=== PATIENT | male | born 1990 | race Caucasian/White ===

== ENCOUNTER 2018-03-06 14:26 | Inpatient (IN) | payer OTHER ==
[~2018-03-06] VITALS: Ht 182.9 cm; Wt 87.1 kg
[2018-03-06 15:03] LABS: BASOPHILS % 0.6 % (0.0-1.0); EOSINOPHILS # (AUTO) 0.1 (0.0-0.4); EOSINOPHILS % 1.5 % (0.0-6.0); HEMATOCRIT 49.2 % (38.2-49.6); HEMOGLOBIN 16.9 g/dL (14.0-18.0); LYMPHOCYTES # (AUTO) 1.2 (1.0-3.2); LYMPHOCYTES % 17.3 % (18.0-39.1); MEAN CORPUSCULAR HEMOGLOBIN 30.3 pg (28-32); MEAN CORPUSCULAR HGB CONC 34.3 g/dL (31-35); MEAN CORPUSCULAR VOLUME 88.2 fL (81-99); MONOCYTES # (AUTO) 0.2 (0.2-0.8); MONOCYTES % 3.2 % (4.4-11.3); NEUTROPHILS # (AUTO) 5.2 (2.1-6.9); PLATELET COUNT 211 x10e3/uL (140-360); RED BLOOD COUNT 5.58 x10e6/uL (4.3-5.7); RED CELL DISTRIBUTION WIDTH 11.8 % (11.7-14.4)
[2018-03-06 15:21] LABS: ALANINE AMINOTRANSFERASE 69 IU/L (0-55); ALBUMIN 4.2 g/dL (3.5-5.0); ALBUMIN/GLOBULIN RATIO 1.2 (0.8-2.0); ALKALINE PHOSPHATASE 73 IU/L (40-150); ANION GAP 13.4 mmol/L (8-16); BLOOD UREA NITROGEN 8 mg/dL (7-26); BUN/CREATININE RATIO 9 (6-25); CALCIUM 9.4 mg/dL (8.4-10.2); CARBON DIOXIDE 25 mmol/L (22-29); CHLORIDE 105 mmol/L (98-107); CREATININE, SERUM 0.93 mg/dL (0.72-1.25); EST GLOMERULAR FILTRATION RATE > 60 ML/MIN (60-); GLUCOSE 98 mg/dL (74-118); MAGNESIUM 2.1 MG/DL (1.3-2.1); PHOSPHORUS 1.1 MG/DL (2.3-4.7); POTASSIUM 4.4 mmol/L (3.5-5.1); SODIUM 139 mmol/L (136-145)
--- NOTE | 2018-03-06 15:26 | Diagnostic Imaging Report ---
Examination: CT BRAIN WITHOUT CONTRAST History:Seizures. Comparison studies:None Technique: Axial images were obtained from the skull base to the vertex. Coronal and sagittal images reconstructed from the axial data. Intravenous contrast: None Findings: Scalp: No abnormalities. Bones: No fractures, blastic or lytic lesions. Brain sulci: Appropriate for age. Ventricles: Normal in size and configuration. No hydrocephalus. Extra-axial space: No abnormalities. Parenchyma: No abnormal densities. No masses, hemorrhage, or acute or chronic cortical based vascular insults. Sellar/suprasellar region: No abnormalities. Craniocervical junction: Patent foramen magnum. No Chiari one malformation. Incidental findings: None. Impression: No intracranial abnormalities. Signed by: Dr. Dania Madera M.D. on 03/06/2018 3:23 PM
[2018-03-06] MEDS ORDERED: POTASSIUM PHOSPHATE 20 MM in SODIUM CHLORIDE 0.9% 250ML 250 ML IV ONE ×2 (16:30→17:15)
[2018-03-06] MEDS ORDERED: SODIUM CHLORIDE FLUSH 10 ML SYR INJ PRN (17:00)
[2018-03-06] MEDS ORDERED: ONDANSETRON HCL INJ 2 MG/ML VIAL IV PRN (17:00)
--- OUTSIDE RECORDS SUMMARY | 2018-03-06 17:20 | XMS REPORT ---
Author Author [facility] Address Unknown Phone Unavailable Care Team Providers Care Breakfast Bar Attendant Name Role Phone LAZ DAVIS Unavailable Unavailable Problems This patient has no known problems. Allergies, Adverse Reactions, Alerts This patient has no known allergies or adverse reactions. Medications This patient has no known medications. Results Test Description Test Time Test Comments Text Results Atomic Results Result Comments CT BRAIN WO [place] [address] Patient Name: DEEPIKA CURRY MR #: [id number] : 1990 Age/Sex: 27/M Req # : [id number] Adm Physician: Ordered by: LAZ DAVIS MD Report #: [id number] Location: ER Room/Bed: Procedure: 0410- 0018 CT/CT BRAIN WO Exam Date: 03/06/18 Exam Time: 1444 REPORT STATUS: Signed Examination: CT BRAIN WITHOUT CONTRAST History:Seizures. Comparison studies:None Technique: Axial images were obtained from the skull base to the vertex. Coronal and sagittal images reconstructed from the axial data. Intravenous contrast: None Findings: Scalp: No abnormalities. Bones: No fractures, blastic or lytic lesions. Brain sulci: Appropriate for age. Ventricles: Normal in size and configuration. No hydrocephalus. Extra-axial space: No abnormalities. Parenchyma: No abnormal densities. No masses, hemorrhage, or acute or chronic cortical based vascular insults. Sellar/suprasellar region: No abnormalities. Craniocervical junction: Patent foramen magnum. No Chiari one malformation. Incidental findings: None. Impression: No intracranial abnormalities. Signed by: Dr. Dania Madera M.D. on 2017 3:23 PM Dictated By: DANIA ROMERO MD [id number] Transcribed By: ALAN on 03/06/18 1523 COPY TO: LAZ DAVIS MD
[2018-03-06] MEDS ORDERED: SODIUM CHLORIDE 0.9% 1000ML 1,000 ML ONE (17:46)
[2018-03-06 19:58] LABS: AMPHETAMINES SCREEN,URINE NEGATIVE (NEGATIVE); BENZODIAZEPINES SCREEN,URINE NEGATIVE (NEGATIVE); BILIRUBIN,URINE NEGATIVE (NEGATIVE); CLARITY,URINE CLEAR (CLEAR); COLOR,URINE YELLOW (YELLOW); KETONES,URINE NEGATIVE (NEGATIVE); LEUKOCYTE ESTERASE ,URINE NEGATIVE (NEGATIVE); NITRITE,URINE NEGATIVE (NEGATIVE); PHENCYCLIDINE SCREEN,URINE NEGATIVE (NEGATIVE); PROTEIN,URINE DIPSTICK NEGATIVE (NEGATIVE); URINE UROBILINOGEN 0.2 mg/dL (0.2 - 1)
[2018-03-06 20:00] VITALS: BP 118/62
[2018-03-06 20:05] LABS: POTASSIUM,URINE 90.2 mmol/L
[2018-03-06 20:08] LABS: RBC,URINE 0-5 /HPF (0-5); WBC,URINE (MAN) 0-5 /HPF (0-5)
[2018-03-06 20:09] LABS: MUCUS,URINE RARE (RARE)
[2018-03-06 20:18] VITALS: BP 118/62
[2018-03-07] VITALS (9 sets, daily range): BP systolic 111–120; BP diastolic 54–60
--- NOTE | 2018-03-07 06:49 | History and Physical ---
PRIMARY CARE PHYSICIAN: None PAIN SPECIALIST: Dr. Griffin at [facility]. CHIEF COMPLAINT: Shaking episodes. HISTORY OF PRESENT ILLNESS: This is a 27-year-old man with a history of a seizure episode in April of 2016 without treatment, and history of back pain after water heater injury to his lower back earlier in November of 2017. Has been receiving treatment by pain specialist, Dr. Griffin. Yesterday, went downtown for his lumbosacral injection. The patient had Valium prior to the procedure. Then he had anesthesia. Had the procedure for about 45 minutes. Thereafter, did well. Six minutes later, however, the patient developed some jerking of his chest and shoulders. He was transferred here for management. Labs obtained at the facility showed normal CBC and normal basic metabolic panel. The patient was admitted for further evaluation and management. Overnight, the patient's family at bedside and noted that he had a similar episode overnight. This is yet to be verified by nursing staff. He is admitted for further evaluation and management. EEG is pending. PAST MEDICAL HISTORY: Seizure-like episode in April 2016 without treatment, trauma to lower back secondary to water heater falling on his back at work in November 2017, cigarette use. PAST SURGICAL HISTORY: None. FAMILY HISTORY: No seizure history. The patient does have a family history of diabetes. SOCIAL HISTORY: Patient is single. He has no alcohol or illicits. He smokes half a pack of cigarettes per day. MEDICATIONS: Per electronic medical record. REVIEW OF SYSTEMS: Denies any dizziness or chest pain. PHYSICAL EXAMINATION VITAL SIGNS: Have been reviewed. GENERAL: A tired-appearing man resting in bed. HEENT: Anicteric. Pupils respond to light. No oral lesions. CARDIOVASCULAR: Normal S1 and S2. LUNGS: Moderate breath sounds. ABDOMEN: Soft, nontender and nondistended. EXTREMITIES: No edema or calf tenderness. NEUROLOGICAL: He is alert and oriented times 3. Moving all extremities. SKIN: Dry. He has multiple tattoos on his upper extremity. PSYCHIATRIC: Normal affect. LABS: Reviewed. MEDICATIONS: Reviewed. ASSESSMENT AND PLAN: This is a 27-year-old man with: 1. Seizure-like activity: Jerking of the shoulders and the chest wall. Electroencephalogram is pending. Jerking episodes overnight was not witnessed by nursing staff, only by family member. Currently, the patient is symptom free. Will monitor. Await electroencephalogram. 2. Chronic back pain: Secondary to trauma by water heater in November 2017. He will need to follow up with Dr. Griffin once he is discharged. Will continue pain management. 3. Cigarette abuse: Counseling on reduction or cessation. 4. Overweight state: Body mass index is 26. Labs this morning are pending. His blood glucose at the facility yesterday was 98. 5. Elevated ALT was 69: Likely nonspecific. 6. Hypophosphatemia: Replace and recheck. 7. Prophylaxis: Will use sequential compression devices. 8. Disposition: Computerized tomography scan of the brain negative. Follow up electroencephalogram this morning. Follow up with phosphorus level. Job#: [id number] IGOR
[2018-03-07 07:02] LABS: BASOPHILS % 0.2 % (0.0-1.0); EOSINOPHILS % 0.2 % (0.0-6.0); HEMATOCRIT 44.2 % (38.2-49.6); HEMOGLOBIN 15.6 g/dL (14.0-18.0); LYMPHOCYTES # (AUTO) 1.9 (1.0-3.2); MEAN CORPUSCULAR HEMOGLOBIN 30.8 pg (28-32); MEAN CORPUSCULAR HGB CONC 35.3 g/dL (31-35); MEAN CORPUSCULAR VOLUME 87.4 fL (81-99); MONOCYTES # (AUTO) 1.4 (0.2-0.8); MONOCYTES % 7.2 % (4.4-11.3); NEUTROPHILS # (AUTO) 15.7 (2.1-6.9); NEUTROPHILS % 81.6 % (38.7-80.0); PLATELET COUNT 248 x10e3/uL (140-360); RED BLOOD COUNT 5.06 x10e6/uL (4.3-5.7); RED CELL DISTRIBUTION WIDTH 11.8 % (11.7-14.4)
[2018-03-07 07:39] LABS: ALANINE AMINOTRANSFERASE 66 IU/L (0-55); ALBUMIN 3.7 g/dL (3.5-5.0); ALBUMIN/GLOBULIN RATIO 1.1 (0.8-2.0); ALKALINE PHOSPHATASE 68 IU/L (40-150); ANION GAP 11.9 mmol/L (8-16); BLOOD UREA NITROGEN 11 mg/dL (7-26); BUN/CREATININE RATIO 11 (6-25); CALCIUM 9.3 mg/dL (8.4-10.2); CARBON DIOXIDE 27 mmol/L (22-29); CHLORIDE 104 mmol/L (98-107); CREATININE, SERUM 0.96 mg/dL (0.72-1.25); EST GLOMERULAR FILTRATION RATE > 60 ML/MIN (60-); GLUCOSE 135 mg/dL (74-118); MAGNESIUM 1.7 MG/DL (1.3-2.1); PHOSPHORUS 3.2 MG/DL (2.3-4.7); POTASSIUM 3.9 mmol/L (3.5-5.1); SODIUM 139 mmol/L (136-145)
[2018-03-07] MEDS ORDERED: TEMAZEPAM 15 MG CAP PO ONE (21:00)
--- NOTE | 2018-03-07 23:17 | Consultation ---
DATE OF CONSULTATION: March 07, 2018 NEUROLOGY CONSULTATION HISTORY OF PRESENT ILLNESS: Mr. Eden is a 27-year-old right hand dominant man without significant past medical history who presented to the emergency center at [facility] on March 06, 2018 with shaking spells. On the morning of March 06, 2018 , the patient was at his pain management physician's office to receive his first round of epidural steroid injections to the lumbar spine. Prior to the injections, the patient was treated with Valium. The patient then received the epidural steroid injections without any complications. However, approximately 3 minutes after receiving the epidural steroid injections, the patient began to experience shaking of his chest and shoulders. There was no stiffening or shaking of the arms or legs. The patient was unresponsive. There was no tongue biting or bladder/bowel incontinence. Per the patient's girlfriend who witnessed the event, the shaking lasted for approximately 8 seconds. The patient then regained consciousness. Mr. Eden does not recall the above-described episode. After receiving the epidural steroid injections, his next memory was arriving in the emergency center at [facility]. While in the emergency center, the patient experienced 2 episodes characterized by similar symptoms, each lasting approximately three to four seconds. After he was admitted to the hospital, the patient experienced 3 similar episodes. Once again, each episode lasted approximately three to four seconds. Other than family members or friends, no medical staff has witnessed these episodes. The patient reports having a "seizure" approximately 2 years ago. He reports the seizure was triggered by watching a war movie shortly after being discharged from service. The patient went to a [facility] in [place], [place]. While in the hospital, he underwent a MRI of the brain which was reportedly normal. The patient does not recall undergoing an electroencephalogram during this hospitalization. There is no known history of febrile seizures. There is no known family history of seizure disorders. Mr. Eden does not report a prior traumatic brain injury or prior history of meningoencephalitis. The patient does endorse sleep deprivation, but states this is chronic secondary to pain in his low back. He does not endorse recent illness, use of illicit substances, or sudden cessation of alcohol consumption. According to the patient's girlfriend, he was "very nervous" prior to receiving the epidural steroid injections. Mr. Eden states he does not like needles. He does not like to have his blood drawn or to receive shots of any sort. The patient has never passed out when having his blood drawn or receiving a shot. REVIEW OF SYSTEMS: Possible seizures, chronic low back pain. Otherwise, a 12 point review of systems is negative. PAST MEDICAL HISTORY: According to patient, mild post traumatic stress disorder which is not being treated, possible seizure approximately 2 years ago. PAST SURGICAL HISTORY: None. PAST HOSPITALIZATIONS: The patient was previously hospitalized for lower extremity paralysis of unknown cause. FAMILY HISTORY: There is a strong family history of diabetes mellitus and various cancers. SOCIAL HISTORY: The patient is single. He attended some college. 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 The patient does report an approximately 10 year history of cigarette use. However, he quit smoking cigarettes approximately one week ago. The patient endorses social alcohol use. He does not report current or prior recreational drug use. HOME MEDICATIONS: None. ALLERGIES: NO KNOWN DRUG ALLERGIES. THE PATIENT ENDORSES AN ALLERGY TO CITRUS FRUIT, WHICH CAUSES ANAPHYLAXIS. NO KNOWN ALLERGY TO LATEX. NO KNOWN ALLERGY TO IODINE OR OTHER CONTRAST MATERIALS. PHYSICAL EXAMINATION: VITAL SIGNS: Height 72 inches, weight 192 pounds. BMI 26.0 kg per meter squared. Blood pressure 111/54 mmHg, pulse 72 beats per minute. Respiratory rate 18 breaths per minute. Oxygen saturation 98% on room air. GENERAL: The patient is awake and alert. Does not appear distressed. HEENT: Normocephalic and atraumatic. Pupils are equal, round and reactive to light. Moist mucous membranes. NECK: Supple. No appreciable thyromegaly. No appreciable carotid bruits. CARDIOVASCULAR: S1 and S2. Regular rate and rhythm. No murmurs, rubs or gallops. RESPIRATORY: Clear to auscultation bilaterally. No wheezes, rhonchi or rales. EXTREMITIES: The skin is warm and dry. No clubbing, cyanosis or edema. The posterior tibial and dorsalis pedis pulses are 2+ and symmetric. SKIN: No rashes or lesions. NEUROLOGIC: Memory/attention: The patient is awake and alert. Oriented to person, place, time, and situation. CRANIAL NERVES: Cranial nerve I: Not tested. Cranial nerves II, III, IV, : Pupils are equal and round, react briskly to light (from 6 mm to 3 mm). Extraocular movements intact. No nystagmus. Cranial nerve V: Sensation to light touch and pinprick is intact in the bilateral V1 through V3 distributions. Strength of the temporalis and masseter muscles is within normal limits. Cranial nerve VII: The face is symmetric, as are all facial movements. Strength is within normal limits. Cranial nerve VIII: Hearing is intact to finger rub bilaterally. Cranial nerve IX and X: The soft palate elevates equally and symmetrically. Cranial nerve XI: Normal strength of the bilateral sternocleidomastoid and trapezius muscles. Cranial nerve XII: The tongue protrudes midline and moves symmetrically from side to side. STRENGTH: Bulk is normal, and strength is 5/5 in the bilateral deltoids, biceps, triceps, wrist flexors and extensors, finger flexors and extensors, intrinsic hand muscles, hip flexors, knee flexors and extensors, ankle dorsiflexion and plantar flexion, and intrinsic foot muscles. Tone is normal. DTRs: Deep tendon reflexes are 2+ and symmetric at the triceps, biceps, brachioradialis, patellas, and Achilles. Plantar responses are flexor bilaterally. Absent clonus. SENSATION: Intact to light touch and pinprick in both arms and both legs. CEREBELLAR: [place]-gpaz-[id number] and heel-diaz movements are intact without dysmetria or other impairment. Rapid alternating movements are intact. GAIT: Deferred. SPEECH: Spontaneous speech is normal without appreciable dysarthria or aphasia. Repetition is intact. INVOLUNTARY MOVEMENTS: None. PRONATOR DRIFT: None. LABORATORY DATA: Sodium 139, potassium 3.9, chloride 104. Carbon dioxide 27. Anion gap 11.9. BUN 11, creatinine 0.96. Estimated GFR greater than 60. BUN to creatinine ratio 11. Glucose 135. Calcium 9.3. Phosphorus 3.2. Magnesium 1.7. Total bilirubin 0.3. AST 28, ALT 66. Alkaline phosphatase 68. Total protein 7.0. Albumin 3.7, globulin 3.3. Albumin to globulin ratio 1.1. Troponin I less than 0.001. Prolactin 10.6. Parathyroid hormone 22. Parathyroid hormone interpretation normal. CBC with differential and platelets reveals a white blood cell count of 19.16 with 81.6% neutrophils, 10.0% lymphocytes, 7.2% monocytes, 0.2% eosinophils, 0.2% basophils. Hemoglobin and hematocrit are 15.6 and 44.2, respectively. Platelet count is 248,000. Urinalysis shows 2+ glucose, but is otherwise unremarkable. Toxicology screen is negative. DIAGNOSTIC STUDIES: MRI of the brain without contrast on 03/07/2018: On my review, there is no evidence of recent large territorial ischemia, hemorrhage, mass or mass effect. There are no migrational anomalies. There is no mesial temporal sclerosis. Routine EEG on 03/07/2018: Normal background activity of 8 to 9 Hz with superimposed fast activity (13 to 14 Hz), probably due to medication effect. There is a driving response to photic stimulation. No hyperventilation. No sleep. There are no epileptiform discharges. ASSESSMENT AND PLAN: Mr. Eden is a 27-year-old right hand dominant man without significant past medical history, admitted to [facility] on March 06, 2018 with shaking spells which are described in the history of present illness. The patient's neurological examination is nonfocal. The results of his laboratory data and other diagnostic studies have been reviewed and are documented above. Based on Mr. Eden's history, neurological examination, and the findings on his diagnostic studies, there is very little suspicion for an underlying seizure disorder. In my opinion, his history is more compatible with convulsive syncope. I spoke with the admitting attending, Dr. Sherman, regarding my opinion. He has requested orders for an echocardiogram and bilateral carotid artery ultrasounds with Doppler be placed as part of a cardiac evaluation for syncope. Those orders have been placed by myself at the request of Dr. Sherman. Thank you for this consultation. There are no further recommendations from the neurology service at this time. Please contact me with any questions or concerns regarding this patient. TIME SPENT: 70 minutes. Job#: [id number] GH DELMY
[2018-03-08] VITALS: BP 98/53
--- NOTE | 2018-03-08 00:09 | Diagnostic Imaging Report ---
History: seizures. Comparison studies:CT brain from 03/06/2018. Technique: Sagittal and axial T2; axial T1-IR, GRE, DWI, FLAIR; Thin section coronals of the temporal lobes: FLAIR, T2. Intravenous contrast: None. Findings: Suboptimal evaluation due to motion artifacts. Masses: None . Encephalomalacia: None. Normal signal throughout the cortex . Ischemic changes: No acute or chronic vascular insults. Calcification/iron: No abnormal deposits. Hippocampi: No atrophy or gliosis. Normal fornices. Vascular: Normal flow voids in the major arteries and veins. No malformations. Bills matter: No cortical migration anomalies. Other: Brain sulci: Normal for age. Ventricles: Normal in size and configuration. No hydrocephalus. Foramen Magnum: Patent foramen magnum. No Chiari one malformation. Sella: Normal in size. No intra-or suprasellar lesions. Skull: No focal lesions. Sinuses/mastoids: Moderate size polyp/retention cyst in left maxillary sinus. Moderate T2 hyperintense mucosa in bilateral ethmoid and sphenoid sinuses. IMPRESSION: 1. No intracranial abnormality. 2. Moderate mucosal inflammatory changes in the paranasal sinuses as detailed above. Signed by: Dr. Taylor Benz M.D. on 03/08/2018 12:06 AM
[2018-03-08 04:00] VITALS: BP 87/41
[2018-03-08] MEDS ORDERED: SODIUM CHLORIDE 0.9% 1000ML 1,000 ML IV SCH (06:45)
[2018-03-08] MEDS ORDERED: ASPIRIN81 MG PO (06:47)
[2018-03-08 07:35] VITALS: BP 87/41
[2018-03-08 07:46] LABS: CHOL/HDL RATIO 3.8 (3.9-4.7)
[2018-03-08 08:05] VITALS: BP 108/60
[2018-03-08 12:11] VITALS: BP 110/53
== END 2018-03-08 12:59 | disposition home or self-care (01) | DRG 101 ==
LOC: ER 14:30 → ERHOLD 17:17 → MED/SURG 20:02
PROVIDERS: ADMIT Internal Medicine; ATTEND Internal Medicine
DX: R56.9 Unspecified convulsions (principal); E83.39 Other disorders of phosphorus metabolism; G89.21 Chronic pain due to trauma; F17.210 Nicotine dependence, cigarettes, uncomplicated; E66.9 Obesity, unspecified; Z68.26 Body mass index [BMI] 26.0-26.9, adult
CPT/HCPCS: 36415; 70450; 70551; 80053; 80061; 80307; 81001; 83735; 83970; 84100; 84133; 84146; 84300; 84484; 85025; 93005; 93306; 93880; 95812; 99284; J7030; J7050